=== PATIENT | female | born 1980 | race Caucasian/White ===

== ENCOUNTER → 2020-12-11 10:43 | Outpatient (CLI) | payer OTHER, SELFPAY ==
--- NOTE | 2020-12-11 10:45 | DI.RAD.S_ITS ---
PROCEDURE: XR FOOT LT MIN 3V INDICATIONS: l foot pain TECHNIQUE: 3 views of the foot were acquired. COMPARISON: None. FINDINGS: Bones: No fractures or dislocations. No suspicious bony lesions. Soft tissues: No tibiotalar joint effusion. Achilles tendon appears normal. IMPRESSION: No evidence acute bony abnormality of the left foot Dictated by: Jt Ward M.D. on 12/11/2020 at 11:22 Approved by: Jt Ward M.D. on 12/11/2020 at 11:22
--- NOTE | 2020-12-11 10:45 | DI.RAD.S_ITS ---
PROCEDURE: XR ANKLE LT MIN 3V INDICATIONS: l ankle pain TECHNIQUE: 3 views of the ankle were acquired. COMPARISON: None. FINDINGS: Bones: No fractures or dislocations. Ankle mortise is normally aligned. No suspicious bony lesions. Soft tissues: No tibiotalar joint effusion. Achilles tendon appears normal. Lateral ankle sprain. IMPRESSION: Lateral ankle sprain. No evidence acute bony abnormality of the left ankle. If clinical suspicion and/or symptoms persist, further assessment with repeat plain films, or advanced imaging (e.g., CT, MRI, or bone scan) may be helpful for further assessment. Dictated by: Jt Ward M.D. on 12/11/2020 at 11:21 Approved by: Jt Ward M.D. on 12/11/2020 at 11:22
--- NOTE | 2020-12-11 12:13 | DI.RAD.S_ITS ---
PROCEDURE: XR KNEE RT 3V INDICATIONS: r knee pain TECHNIQUE: 3 views of the knee were acquired. COMPARISON: None. FINDINGS: Bones: No fractures or dislocations. No suspicious bony lesions. Soft tissues: No joint effusion. No suspicious soft tissue calcifications. IMPRESSION: Right knee without acute osseous abnormalities or dislocation. If there are persistent symptoms or clinical suspicion for pathology, then repeat radiographs or advanced imaging (CT, MRI or bone scan) may be considered for further evaluation. Dictated by: Saw Siegel M.D. on 12/11/2020 at 12:28 Approved by: Saw Siegel M.D. on 12/11/2020 at 12:29
== END ==
PROVIDERS: PCP Physician Assistant; Referring Provider Physician Assistant; Visit Provider Physician Assistant
DX: S93.402A Sprain of unspecified ligament of left ankle, initial encounter (principal); M79.672 Pain in left foot; M25.561 Pain in right knee
CPT/HCPCS: 73562; 73610; 73630

== ENCOUNTER 2022-04-12 18:30 | Emergency (ER) | payer OTHER, SELFPAY ==
[2022-04-12 18:49] VITALS: BP 170/93; PULSE 99; RESP 18; TEMP 37.1; O2SAT 97; BMI 34.2
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
[2022-04-12 20:44] LABS: Pregnancy Test Urine Negative (Negative)
[2022-04-12 21:01] LABS: Bacteria Urine Occasional (0-1); Mucus Urine 2+ (Negative); RBC Urine None Seen (0-5/HPF); Squamous Epithelial Cell Urine 5-10 /HPF (0-5/HPF); WBC Urine 5-10/HPF (0-5/HPF)
--- NOTE | 2022-04-12 21:08 | PC.NURSE ---
1946: Pt listed as a moderate risk. After talking with JENAE Osman pt is now to be considered a low risk. Pt is tearful. JENAE Osman at bedside.
== END 2022-04-12 20:42 | disposition home or self-care (01) ==
PROVIDERS: Emergency Provider Emergency Medicine; PCP Physician Assistant
DX: R45.851 Suicidal ideations (principal); F32.A Depression, unspecified
CPT/HCPCS: 81003; 81015; 81025; 87086; 99283